=== PATIENT | female | born 1960 | race Caucasian/White ===

== ENCOUNTER 2017-08-31 03:40 | Inpatient (IN) | payer BC, OTHER ==
[~2017-08-31] VITALS: Ht 165.1 cm; Wt 154.8 kg
[2017-08-31] MEDS ORDERED: HYDROcodone-ACET 10/325MG TAB PO ONE (05:30)
[2017-08-31 06:51] LABS: Basophils # (auto) 0.1 uL; Basophils % (auto) 0.5 % (0.0-2.0); Eosinophils # (auto) 0.3 uL; Eosinophils % (auto) 2.3 % (0.0-7.0); Hematocrit 43.4 % (36.0-46.0); Hemoglobin 14.7 g/dL (12.2-16.2); Lymphocytes # (auto) 1.1 uL; Lymphocytes % (auto) 9.3 % (10.0-50.0); Mean Corpuscular Hemoglobin 30.2 pg (28.0-32.0); Mean Corpuscular Hgb Conc. 33.9 g/dL (32.0-36.0); Mean Corpuscular Volume 89.1 fL (80.0-100.0); Monocytes # (auto) 0.9 uL; Neutrophils # (auto) 9.1 uL; Neutrophils % (auto) 79.9 % (37.0-80.0); Nucleated Red Blood Cells % 0.1 %; Platelet Count (auto) 105 10^3/uL (140-450); Red Blood Cells 4.87 10^6/uL (4.0-5.20); Red Cell Distribution Width 13.2 % (11.8-14.3); White Blood Cell 11.4 10^3/uL (4.4-10.8)
[2017-08-31 07:21] LABS: Alanine Aminotransferase 48 U/L (13-56); Albumin 3.7 g/dL (3.4-5.0); Alkaline Phosphatase 94 U/L (45-117); Anion Gap 10 (5-15); Aspartate Aminotransferase 21 U/L (15-37); BUN/Creatinine Ratio 20.3; Bilirubin, Total 0.3 mg/dL (0.2-1.0); Blood Urea Nitrogen 15 mg/dL (7-18); Calcium 9.1 mg/dL (8.5-10.1); Carbon Dioxide 22 mmol/L (21-32); Chloride 108 mmol/L (98-107); GFR African American 104 mL/min; GFR Non-African American 86 mL/min; Glucose 129 mg/dL (74-106); Magnesium 2.5 mg/dL (1.6-2.6); Potassium 3.9 mmol/L (3.5-5.1); Sodium 140 mmol/L (136-145); Total Protein 6.9 g/dL (6.4-8.2)
[2017-08-31 07:41] LABS: INR 0.91 (0.9-1.15); Partial Thromboplastin Time 24.7 sec (22.64-33.71); Prothrombin Time 9.9 sec (9.37-12.3)
[2017-08-31] MEDS: SODIUM CHLORIDE 0.9% 1,000 ML IV SCH (08:03)
[2017-08-31] MEDS ORDERED: NITROGLYCERIN 0.4 MG SL TAB SL PRN (08:15)
[2017-08-31] MEDS ORDERED: LACTULOSE 20Gm/30ML SOLN PO PRN (08:15)
[2017-08-31] MEDS ORDERED: MORPHINE SULFATE 4 MG/ML SYR/VIAL IV PRN (08:15)
[2017-08-31] MEDS ORDERED: ACETAMINOPHEN 500 MG TAB PO PRN (08:15)
[2017-08-31] MEDS: PROMETHAZINE HCL 25 MG/ML 1ML IV PRN ×2 (08:35→21:51)
[2017-08-31] MEDS: MORPHINE SULFATE 4 MG/ML SYR/VIAL IV PRN ×4 (08:35→21:42)
[2017-08-31 08:36] LABS: Alcohol, Urine < 3.0 mg/dL (0-5); Amphetamine Screen, Urine NEGATIVE (NEGATIVE); Barbiturate Scree,Urine NEGATIVE (NEGATIVE); Benzodiazephine Screen, Urine POSITIVE (NEGATIVE); Cannabinoid Screen, Urine NEGATIVE (NEGATIVE); Cocaine Screen, Urine NEGATIVE (NEGATIVE); Opiate Scree,Urine NEGATIVE (NEGATIVE); Phencyclidine Screen, Urine NEGATIVE (NEGATIVE)
[2017-08-31 08:40] LABS: Urine Bacteria NONE SEEN /hpf (None Seen); Urine Blood Negative /uL (Negative); Urine Mucus FEW (None Seen); Urine Specific Gravity 1.016 (1.001-1.035); Urine WBC <1 /hpf (0 - 5)
[2017-08-31 09:11] LABS: Cholesterol 120 mg/dL (< 200); Creatine Kinase IFCC 133 U/L (26-192); HDL Cholesterol 50 mg/dL (40-59); LDL Cholesterol 62 mg/dL (< 100); Triglycerides 157 mg/dL (< 150)
[2017-08-31] MEDS ORDERED: IOHEXOL 350 MG/ML 100ML IJ ONE ×2 (09:26→09:42)
[2017-08-31 10:30] LABS: Free T3 2.43 pg/mL (2.3-4.2); Free T4 (Free Thyroxine) 1.23 ng/dL (0.89-1.76)
[2017-08-31 10:33] LABS: Folate (Folic Acid) 21.68 ng/mL (5.38-24)
[2017-08-31] MEDS: ASPirin 81 mg TAB PO SCH (11:18)
[2017-08-31] MEDS: HYDROcodone-ACET 5/325MG TAB PO PRN (11:18)
[2017-08-31] MEDS ORDERED: TURM500C PO (11:29)
[2017-08-31] MEDS ORDERED: MULTTAB PO (11:29)
[2017-08-31] MEDS ORDERED: IBUP800T24 PO (11:29)
[2017-08-31] MEDS ORDERED: BIOT50006 PO (11:29)
[2017-08-31] MEDS ORDERED: ATOR40TA52 PO (11:36)
[2017-08-31] MEDS ORDERED: LEVO200T46 PO (11:36)
[2017-08-31] MEDS ORDERED: CARV6.2551 PO (11:36)
[2017-08-31] MEDS ORDERED: ALPR1TAB7 PO (11:36)
[2017-08-31] MEDS ORDERED: FUR20T PO (11:36)
[2017-08-31] MEDS ORDERED: ESTR0.5T5 PO (11:36)
[2017-08-31 13:00] VITALS: BP 133/74
[2017-08-31 17:00] VITALS: BP 136/78
[2017-08-31] MEDS: ATORVASTATIN 20 MG TAB PO SCH (21:43)
[2017-08-31] MEDS: TEMAZEPAM 15 MG CAP PO PRN (21:52)
[2017-08-31] MEDS ORDERED: LEFL20TA PO (21:57)
[2017-08-31 22:00] VITALS: BP 138/71
[2017-09-01] MEDS: HYDROcodone-ACET 5/325MG TAB PO PRN ×3 (01:07→16:27)
[2017-09-01 05:36] VITALS: BP 126/76
[2017-09-01] MEDS: MORPHINE SULFATE 4 MG/ML SYR/VIAL IV PRN ×5 (05:36→23:11)
[2017-09-01] MEDS: SODIUM CHLORIDE 0.9% 1,000 ML IV SCH ×2 (05:50→09:03)
[2017-09-01 06:20] LABS: Basophils # (auto) 0.1 uL; Basophils % (auto) 0.8 % (0.0-2.0); Eosinophils # (auto) 0.2 uL; Eosinophils % (auto) 2.7 % (0.0-7.0); Hematocrit 37.9 % (36.0-46.0); Lymphocytes # (auto) 1.2 uL; Lymphocytes % (auto) 15.7 % (10.0-50.0); Mean Corpuscular Hemoglobin 30.9 pg (28.0-32.0); Mean Corpuscular Hgb Conc. 34.3 g/dL (32.0-36.0); Monocytes # (auto) 0.8 uL; Monocytes % (auto) 10.5 % (0.0-12.0); Neutrophils # (auto) 5.2 uL; Neutrophils % (auto) 70.3 % (37.0-80.0); Nucleated Red Blood Cells % 0.1 %; Platelet Count (auto) 93 10^3/uL (140-450); Red Blood Cells 4.21 10^6/uL (4.0-5.20); White Blood Cell 7.4 10^3/uL (4.4-10.8)
[2017-09-01 09:00] VITALS: BP 125/64
[2017-09-01] MEDS: ASPirin 81 mg TAB PO SCH (10:14)
[2017-09-01] MEDS: PROMETHAZINE HCL 25 MG/ML 1ML IV PRN ×3 (10:15→18:32)
[2017-09-01 13:00] VITALS: BP 116/57
[2017-09-01 17:00] VITALS: BP 133/68
[2017-09-01] MEDS: ATORVASTATIN 20 MG TAB PO SCH (21:10)
[2017-09-01] MEDS: LORazepam 0.5 MG TAB PO PRN (21:10)
[2017-09-01 22:00] VITALS: BP 134/68
[2017-09-02] MEDS: TEMAZEPAM 15 MG CAP PO PRN ×2 (01:13→22:32)
[2017-09-02] MEDS: HYDROcodone-ACET 5/325MG TAB PO PRN ×4 (03:31→22:32)
[2017-09-02 05:00] VITALS: BP 126/71
[2017-09-02] MEDS: SODIUM CHLORIDE 0.9% 1,000 ML IV SCH ×2 (06:31→10:30)
[2017-09-02] MEDS: MORPHINE SULFATE 4 MG/ML SYR/VIAL IV PRN ×4 (07:59→17:00)
[2017-09-02 08:05] VITALS: BP 143/79
[2017-09-02] MEDS: ASPirin 81 mg TAB PO SCH (11:42)
[2017-09-02 12:58] VITALS: BP 134/73
[2017-09-02] MEDS ORDERED: LEVOTHYROXINE SODIUM 100 MCG TAB PO ONE (14:45)
[2017-09-02] MEDS ORDERED: ESTRADIOL 1 MG TAB PO ONE (14:45)
[2017-09-02 17:09] VITALS: BP 148/71
[2017-09-02 22:00] VITALS: BP 141/80
[2017-09-02] MEDS: LEFLUNOMIDE 20 MG PO SCH (22:00)
[2017-09-02] MEDS: ATORVASTATIN 20 MG TAB PO SCH (22:32)
[2017-09-03] MEDS: MORPHINE SULFATE 4 MG/ML SYR/VIAL IV PRN ×4 (01:32→16:05)
[2017-09-03] MEDS: SODIUM CHLORIDE 0.9% 1,000 ML IV SCH ×3 (01:34→22:14)
[2017-09-03 02:56] VITALS: BP 141/80
[2017-09-03] MEDS: LORazepam 0.5 MG TAB PO PRN ×2 (04:17→19:53)
[2017-09-03 05:00] VITALS: BP 124/79
[2017-09-03] MEDS: LEVOTHYROXINE SODIUM 100 MCG TAB PO SCH (06:41)
[2017-09-03] MEDS: HYDROcodone-ACET 5/325MG TAB PO PRN (06:41)
[2017-09-03 09:00] VITALS: BP 136/70
[2017-09-03] MEDS: HYDROcodone-ACET 10/325MG TAB PO PRN ×4 (09:15→22:11)
[2017-09-03] MEDS: amLODIPine BESYLATE 5 MG TAB PO SCH (10:01)
[2017-09-03] MEDS: ASPirin 81 mg TAB PO SCH (10:01)
[2017-09-03] MEDS: ESTRADIOL 1 MG TAB PO SCH (10:02)
[2017-09-03 12:37] VITALS: BP 156/95
[2017-09-03] MEDS ORDERED: CARISOPRODOL 350 MG TAB PO ONE (13:30)
[2017-09-03 16:38] VITALS: BP 146/77
[2017-09-03 22:00] VITALS: BP 144/81
[2017-09-03] MEDS: LEFLUNOMIDE 20 MG PO SCH (22:09)
[2017-09-03] MEDS: ATORVASTATIN 20 MG TAB PO SCH (22:10)
[2017-09-03] MEDS: TEMAZEPAM 15 MG CAP PO PRN (22:10)
[2017-09-04] MEDS: MORPHINE SULFATE 4 MG/ML SYR/VIAL IV PRN ×3 (01:22→14:28)
[2017-09-04] MEDS: LORazepam 0.5 MG TAB PO PRN ×2 (02:44→18:31)
[2017-09-04 04:49] VITALS: BP 148/89
[2017-09-04] MEDS: LEVOTHYROXINE SODIUM 100 MCG TAB PO SCH (06:29)
[2017-09-04] MEDS: HYDROcodone-ACET 10/325MG TAB PO PRN ×3 (06:30→22:14)
[2017-09-04 09:00] VITALS: BP 138/83
[2017-09-04] MEDS: ASPirin 81 mg TAB PO SCH (10:20)
[2017-09-04] MEDS: ESTRADIOL 1 MG TAB PO SCH (10:20)
[2017-09-04] MEDS: amLODIPine BESYLATE 5 MG TAB PO SCH (10:22)
[2017-09-04] MEDS: SODIUM CHLORIDE 0.9% 1,000 ML IV SCH (12:37)
[2017-09-04 13:00] VITALS: BP 142/77
[2017-09-04] MEDS: PROMETHAZINE HCL 25 MG/ML 1ML IV PRN (14:27)
[2017-09-04 17:00] VITALS: BP 149/80
[2017-09-04 22:00] VITALS: BP 149/91
[2017-09-04] MEDS: ATORVASTATIN 20 MG TAB PO SCH (22:14)
[2017-09-04] MEDS: LEFLUNOMIDE 20 MG PO SCH (22:16)
[2017-09-04] MEDS: TEMAZEPAM 15 MG CAP PO PRN (22:16)
[2017-09-05] MEDS: HYDROcodone-ACET 10/325MG TAB PO PRN ×6 (03:36→22:40)
[2017-09-05 05:30] VITALS: BP 115/61
[2017-09-05] MEDS: LORazepam 0.5 MG TAB PO PRN ×2 (06:27→21:02)
[2017-09-05] MEDS: LEVOTHYROXINE SODIUM 100 MCG TAB PO SCH (06:28)
[2017-09-05 08:00] VITALS: BP 138/83
[2017-09-05 08:55] VITALS: BP 142/82
[2017-09-05] MEDS: ASPirin 81 mg TAB PO SCH (09:45)
[2017-09-05] MEDS: ESTRADIOL 1 MG TAB PO SCH (09:45)
[2017-09-05] MEDS: amLODIPine BESYLATE 5 MG TAB PO SCH (09:45)
[2017-09-05] MEDS: SODIUM CHLORIDE 0.9% 1,000 ML IV SCH ×3 (09:46→22:41)
[2017-09-05 12:16] LABS: Basophils # (auto) 0 uL; Basophils % (auto) 0.6 % (0.0-2.0); Eosinophils # (auto) 0.3 uL; Hematocrit 37.4 % (36.0-46.0); Hemoglobin 12.8 g/dL (12.2-16.2); Lymphocytes % (auto) 14.5 % (10.0-50.0); Mean Corpuscular Hemoglobin 30.6 pg (28.0-32.0); Mean Corpuscular Hgb Conc. 34.2 g/dL (32.0-36.0); Mean Corpuscular Volume 89.5 fL (80.0-100.0); Monocytes # (auto) 0.8 uL; Monocytes % (auto) 10.6 % (0.0-12.0); Neutrophils % (auto) 70.3 % (37.0-80.0); Platelet Count (auto) 119 10^3/uL (140-450); Red Blood Cells 4.18 10^6/uL (4.0-5.20); Red Cell Distribution Width 13.4 % (11.8-14.3); White Blood Cell 7.2 10^3/uL (4.4-10.8)
[2017-09-05 12:47] VITALS: BP 144/83
[2017-09-05] MEDS ORDERED: ETOMIDATE (2MG/ML) 20ML VIAL IV ONE (15:10)
[2017-09-05 17:21] VITALS: BP 140/66
[2017-09-05] MEDS: LEFLUNOMIDE 20 MG PO SCH (21:02)
[2017-09-05] MEDS: ATORVASTATIN 20 MG TAB PO SCH (21:03)
[2017-09-05 22:00] VITALS: BP 131/69
[2017-09-05] MEDS: TEMAZEPAM 15 MG CAP PO PRN (22:40)
[2017-09-06] MEDS: HYDROcodone-ACET 10/325MG TAB PO PRN ×5 (01:48→21:17)
[2017-09-06 04:34] VITALS: BP 131/69
[2017-09-06 05:00] VITALS: BP 155/80
[2017-09-06] MEDS: LEVOTHYROXINE SODIUM 100 MCG TAB PO SCH (06:52)
[2017-09-06 08:56] VITALS: BP 165/67
[2017-09-06] MEDS: ASPirin 81 mg TAB PO SCH (09:58)
[2017-09-06] MEDS: ESTRADIOL 1 MG TAB PO SCH (09:58)
[2017-09-06] MEDS: amLODIPine BESYLATE 5 MG TAB PO SCH (09:59)
[2017-09-06] MEDS: SODIUM CHLORIDE 0.9% 1,000 ML IV SCH (11:30)
[2017-09-06] MEDS: LORazepam 0.5 MG TAB PO PRN (11:39)
[2017-09-06 12:56] VITALS: BP 161/92
[2017-09-06 17:04] VITALS: BP 145/87
[2017-09-06 19:19] LABS: BUN/Creatinine Ratio 14.9; Calcium 9.1 mg/dL (8.5-10.1); Potassium 3.8 mmol/L (3.5-5.1)
[2017-09-06] MEDS: ATORVASTATIN 20 MG TAB PO SCH (21:17)
[2017-09-06] MEDS: LEFLUNOMIDE 20 MG PO SCH (21:17)
[2017-09-06] MEDS: TEMAZEPAM 15 MG CAP PO PRN (21:50)
[2017-09-06 22:00] VITALS: BP 166/65
[2017-09-07] MEDS: HYDROcodone-ACET 10/325MG TAB PO PRN ×4 (00:51→21:05)
[2017-09-07 05:44] VITALS: BP 186/72
[2017-09-07 05:51] LABS: INR 0.94 (0.9-1.15); Prothrombin Time 10.2 sec (9.37-12.3)
[2017-09-07 08:00] VITALS: BP 159/86
[2017-09-07] MEDS: LEVOTHYROXINE SODIUM 100 MCG TAB PO SCH (08:00)
[2017-09-07] MEDS: amLODIPine BESYLATE 5 MG TAB PO SCH (08:00)
[2017-09-07 08:30] VITALS: BP 159/86
[2017-09-07 09:00] VITALS: BP 172/72
[2017-09-07] MEDS ORDERED: fentaNYL CITRATE 100 MCG/2 ML VL ONE (09:46)
[2017-09-07] MEDS ORDERED: ROCURONIUM 10MG/ML 10ML VIAL IV ONE (09:46)
[2017-09-07] MEDS ORDERED: MIDAZOLAM HCL 1MG/1ML-2 ML VIAL ONE (09:47)
[2017-09-07] MEDS ORDERED: ONDANSETRON HCL 4 MG/2 ML VIAL ONE (09:47)
[2017-09-07] MEDS ORDERED: PROPOFOL 10 MG/ML 20 ML IV ONE (09:47)
[2017-09-07] MEDS ORDERED: ceFAZolin 1GM 2 GM in D5W 5% 100 ML IV ONE (10:00)
[2017-09-07] MEDS: ASPirin 81 mg TAB PO SCH (10:00)
[2017-09-07] MEDS: ESTRADIOL 1 MG TAB PO SCH (10:00)
[2017-09-07] MEDS ORDERED: SUCCINYLCHOLINE CHLORIDE 20 MG/ML 10ML VIAL IV ONE (11:28)
[2017-09-07] MEDS ORDERED: BUPIVACAINE W/ EPINEPH 0.25% INJ 50ML MDV ONE (12:07)
[2017-09-07] MEDS ORDERED: KETOROLAC TROMETH 60MG/2ML VIAL IM ONE (12:17)
[2017-09-07] MEDS ORDERED: MORPHINE SULFATE 4 MG/ML SYR/VIAL IV PRN (14:30)
[2017-09-07] MEDS ORDERED: LABETALOL HCL 5 MG/ML 4ML SYRINGE IV PRN (14:30)
[2017-09-07] MEDS ORDERED: METOCLOPRAMIDE HCL 5MG/ml INJ 2ml VIAL IV ONE (14:30)
[2017-09-07] MEDS ORDERED: ACETAMINOPHEN IV 100 ML IV ONE (14:58)
[2017-09-07] MEDS ORDERED: ACETAMINOPHEN IV 1000 MG/100ML (10MG/ML) IV ONE (15:30)
[2017-09-07 17:00] VITALS: BP 159/72
[2017-09-07] MEDS: SODIUM CHLORIDE 0.9% 1,000 ML IV SCH (17:42)
[2017-09-07] MEDS: ceFAZolin 1GM/50ML 100 ML IV SCH ×2 (17:42→23:11)
[2017-09-07] MEDS: LORazepam 0.5 MG TAB PO PRN (17:56)
[2017-09-07] MEDS: LEFLUNOMIDE 20 MG PO SCH (21:06)
[2017-09-07] MEDS: ATORVASTATIN 20 MG TAB PO SCH (21:06)
[2017-09-07 23:01] VITALS: BP 153/77
[2017-09-07] MEDS: TEMAZEPAM 15 MG CAP PO PRN (23:10)
[2017-09-08] MEDS: HYDROcodone-ACET 10/325MG TAB PO PRN ×5 (00:43→19:02)
[2017-09-08] MEDS: LORazepam 0.5 MG TAB PO PRN (01:43)
[2017-09-08] MEDS: SODIUM CHLORIDE 0.9% 1,000 ML IV SCH ×2 (03:33→13:52)
[2017-09-08 05:37] VITALS: BP 142/79
[2017-09-08] MEDS: ceFAZolin 1GM/50ML 100 ML IV SCH ×3 (05:55→17:52)
[2017-09-08] MEDS: LEVOTHYROXINE SODIUM 100 MCG TAB PO SCH (06:36)
[2017-09-08] MEDS: LABETALOL HCL 5 MG/ML ML 20ML VIAL IV PRN ×2 (07:48→18:53)
[2017-09-08 08:36] LABS: Hematocrit 33.3 % (36.0-46.0); Hemoglobin 11.2 g/dL (12.2-16.2)
[2017-09-08 09:00] VITALS: BP 184/90
[2017-09-08] MEDS: KETOROLAC TROMETH 30 MG/ML 1ML VIAL IV PRN ×3 (09:28→21:50)
[2017-09-08] MEDS: ESTRADIOL 1 MG TAB PO SCH (09:46)
[2017-09-08] MEDS: ASPirin 81 mg TAB PO SCH (09:46)
[2017-09-08] MEDS: amLODIPine BESYLATE 5 MG TAB PO SCH (09:49)
[2017-09-08] MEDS: PROMETHAZINE HCL 25 MG/ML 1ML IV PRN (09:49)
[2017-09-08 13:00] VITALS: BP 143/78
[2017-09-08 17:00] VITALS: BP 169/62
[2017-09-08] MEDS ORDERED: MORPHINE SULFATE 8mg/ml INJ SDV IV PRN ×2 (18:00)
[2017-09-08 20:00] VITALS: BP 150/98
[2017-09-08] MEDS: ATORVASTATIN 20 MG TAB PO SCH (21:39)
[2017-09-08] MEDS: TEMAZEPAM 15 MG CAP PO PRN (21:39)
[2017-09-08] MEDS: LEFLUNOMIDE 20 MG PO SCH (21:40)
[2017-09-09] MEDS: ceFAZolin 1GM/50ML 100 ML IV SCH ×3 (00:03→12:00)
[2017-09-09] MEDS: LORazepam 0.5 MG TAB PO PRN (01:15)
[2017-09-09] MEDS: LABETALOL HCL 5 MG/ML ML 20ML VIAL IV PRN (01:15)
[2017-09-09] MEDS: HYDROcodone-ACET 10/325MG TAB PO PRN ×3 (02:35→12:51)
[2017-09-09] MEDS: PROMETHAZINE HCL 25 MG/ML 1ML IV PRN (02:35)
[2017-09-09 04:50] VITALS: BP 156/81
[2017-09-09] MEDS: SODIUM CHLORIDE 0.9% 1,000 ML IV SCH (04:50)
[2017-09-09] MEDS: KETOROLAC TROMETH 30 MG/ML 1ML VIAL IV PRN (05:58)
[2017-09-09] MEDS: LEVOTHYROXINE SODIUM 100 MCG TAB PO SCH (07:03)
[2017-09-09 08:00] VITALS: BP 149/91
[2017-09-09] MEDS: amLODIPine BESYLATE 5 MG TAB PO SCH (08:48)
[2017-09-09] MEDS: ESTRADIOL 1 MG TAB PO SCH (08:49)
[2017-09-09] MEDS: ASPirin 81 mg TAB PO SCH (08:49)
[2017-09-09 09:00] VITALS: BP 191/97
[2017-09-09 11:00] VITALS: BP 191/97
== END 2017-09-09 14:15 | disposition home or self-care (01) | DRG 493 ==
LOC: EDBD 03:40 → ER 03:40 → TELE 03:41 → TELE-WESTW 10:51
PROVIDERS: ADMIT Internal Medicine; ATTEND Internal Medicine
PROC: 0LQ10ZZ Repair Right Shoulder Tendon, Open Approach (ICD-10-PCS; 2017-09-07)
PROC: 0PH Upper Bones, Insertion (ICD-10-PCS; principal; 2017-09-07 11:28)
DX: S42.474A Nondisplaced transcondylar fracture of right humerus, initial encounter for closed fracture (principal); G45.9 Transient cerebral ischemic attack, unspecified; Z68.43 Body mass index [BMI] 50.0-59.9, adult; E66.01 Morbid (severe) obesity due to excess calories; I10 Essential (primary) hypertension; M19.90 Unspecified osteoarthritis, unspecified site; Z79.82 Long term (current) use of aspirin; Z80.3 Family history of malignant neoplasm of breast; Z90.710 Acquired absence of both cervix and uterus; Z79.899 Other long term (current) drug therapy; Z82.49 Family history of ischemic heart disease and other diseases of the circulatory system; Z88.1 Allergy status to other antibiotic agents
CPT/HCPCS: 36415; 70450; 71045; 71275; 72192; 73020; 73030; 73060; 76001; 80048; 80053; 80061; 80307; 81001; 82550; 82607; 82746; 82962; 83735; 83880; 84439; 84443; 84481; 84484; 85014; 85018; 85025; 85379; 85610; 85652; 85730; 86850; 86900; 86901; 93005; 93306; 93886; 94660; 94761; 96361; 96374; A4565; J0131; J0330; J0690; J1885; J2250; J2405; J2704; J7060

== ENCOUNTER 2018-05-01 14:06 | Emergency (ER) | payer BC, OTHER ==
[~2018-05-01] VITALS: Ht 162.6 cm; Wt 127.0 kg
[~2018-05-01 14:06] MED LIST: ALPR1TAB7 PO; ATOR40TA52 PO; BIOT50006 PO; CARV6.2551 PO; ESTR0.5T5 PO; FUR20T PO; IBUP800T24 PO; LEFL20TA PO; LEVO200T46 PO; MULTTAB PO; TURM500C PO
[2018-05-01] MEDS ORDERED: SODIUM CHLORIDE 0.9% 1,000 ML IV ONE (14:24)
[2018-05-01 15:30] LABS: Basophils # (auto) 0.1 uL; Basophils % (auto) 0.9 % (0.0-2.0); Eosinophils # (auto) 0.1 uL; Eosinophils % (auto) 1.4 % (0.0-7.0); Hematocrit 46.2 % (36.0-46.0); Hemoglobin 15.9 g/dL (12.2-16.2); Lymphocytes % (auto) 11.7 % (10.0-50.0); Mean Corpuscular Hemoglobin 31.3 pg (28.0-32.0); Mean Corpuscular Hgb Conc. 34.4 g/dL (32.0-36.0); Monocytes # (auto) 0.7 uL; Monocytes % (auto) 7.7 % (0.0-12.0); Neutrophils % (auto) 78.3 % (37.0-80.0); Platelet Count (auto) 137 10^3/uL (140-450); Red Blood Cells 5.07 10^6/uL (4.0-5.20); Red Cell Distribution Width 13.3 % (11.8-14.3); White Blood Cell 8.9 10^3/uL (4.4-10.8)
[2018-05-01] MEDS ORDERED: ONDANSETRON HCL 4 MG/2 ML VIAL ONE (15:39)
[2018-05-01] MEDS ORDERED: KETOROLAC TROMETH 30 MG/ML 1ML VIAL ONE (15:39)
[2018-05-01 15:45] LABS: Anion Gap 8 (5-15); Blood Urea Nitrogen 18 mg/dL (7-18); Calcium 9.2 mg/dL (8.5-10.1); Carbon Dioxide 25 mmol/L (21-32); Chloride 106 mmol/L (98-107); Glucose 107 mg/dL (74-106); Potassium 4.2 mmol/L (3.5-5.1); Sodium 139 mmol/L (136-145)
[2018-05-01] MEDS ORDERED: KETOROLAC TROMETH 30 MG/ML 1ML VIAL IV ONE (15:45)
[2018-05-01] MEDS ORDERED: ONDANSETRON HCL 4 MG/2 ML VIAL IV ONE (15:45)
[2018-05-01 15:50] LABS: Alanine Aminotransferase 129 U/L (13-56); Alkaline Phosphatase 139 U/L (45-117); Aspartate Aminotransferase 105 U/L (15-37); BUN/Creatinine Ratio 19.1; Bilirubin, Total 0.6 mg/dL (0.2-1.0); GFR African American 79 mL/min; GFR Non-African American 65 mL/min; Total Protein 7.7 g/dL (6.4-8.2)
[2018-05-01 17:31] LABS: Urine Bacteria FEW /hpf (None Seen); Urine Blood Negative /uL (Negative); Urine Mucus FEW (None Seen); Urine Specific Gravity 1.017 (1.001-1.035); Urine WBC 1 /hpf (0 - 5)
[2018-05-01] MEDS ORDERED: MECLIZINE HCL 25 MG TAB PO ONE (18:00)
[2018-05-01 18:18] VITALS: BP 138/76
== END 2018-05-01 19:17 | disposition home or self-care (01) ==
LOC: ER 14:26
DX: R10.9 Unspecified abdominal pain (principal); R42 Dizziness and giddiness; I10 Essential (primary) hypertension; Z90.89 Acquired absence of other organs; Z79.899 Other long term (current) drug therapy; Z88.2 Allergy status to sulfonamides; Z88.1 Allergy status to other antibiotic agents
CPT/HCPCS: 36415; 71045; 74176; 80053; 81001; 84484; 85025; 96361; 96374; 96375; 99284; J1885; J2405; J7030; J8597

== ENCOUNTER 2018-09-12 15:35 | Emergency (ER) | payer BC ==
[~2018-09-12] VITALS: Ht 165.1 cm; Wt 147.4 kg
[2018-09-12 16:22] VITALS: BP 141/75
[2018-09-12] MEDS ORDERED: KETOROLAC TROMETH 60MG/2ML VIAL IM ONE (16:30)
== END 2018-09-12 17:45 | disposition home or self-care (01) ==
LOC: ER 15:43
DX: M17.12 Unilateral primary osteoarthritis, left knee (principal); M17.11 Unilateral primary osteoarthritis, right knee; I10 Essential (primary) hypertension; M19.90 Unspecified osteoarthritis, unspecified site; Z90.89 Acquired absence of other organs; Z88.2 Allergy status to sulfonamides; Z88.1 Allergy status to other antibiotic agents; Z79.899 Other long term (current) drug therapy
CPT/HCPCS: 73562; 96372; 99283; J1885

== ENCOUNTER 2019-03-09 10:35 | Emergency (ER) | payer BC ==
[~2019-03-09] VITALS: Ht 165.1 cm; Wt 159.2 kg
[2019-03-09 12:06] LABS: Basophils # (auto) 0.1 uL; Basophils % (auto) 0.8 % (0.0-2.0); Eosinophils # (auto) 0.2 uL; Eosinophils % (auto) 3.8 % (0.0-7.0); Hematocrit 42.7 % (36.0-46.0); Hemoglobin 14.5 g/dL (12.2-16.2); Lymphocytes # (auto) 1.4 uL; Lymphocytes % (auto) 22.7 % (10.0-50.0); Mean Corpuscular Hemoglobin 30.7 pg (28.0-32.0); Mean Corpuscular Hgb Conc. 33.9 g/dL (32.0-36.0); Mean Corpuscular Volume 90.4 fL (80.0-100.0); Monocytes # (auto) 0.5 uL; Monocytes % (auto) 7.3 % (0.0-12.0); Neutrophils # (auto) 4.1 uL; Neutrophils % (auto) 65.4 % (37.0-80.0); Nucleated Red Blood Cells % 0.1 %; Platelet Count (auto) 114 10^3/uL (140-450); Red Blood Cells 4.72 10^6/uL (4.0-5.20); Red Cell Distribution Width 13.1 % (11.8-14.3); White Blood Cell 6.3 10^3/uL (4.4-10.8)
[2019-03-09 12:13] LABS: Chloride 106 mmol/L (98-107); Potassium 4.3 mmol/L (3.5-5.1); Sodium 139 mmol/L (136-145)
[2019-03-09 12:18] LABS: Alanine Aminotransferase 40 U/L (13-56); Albumin 3.5 g/dL (3.4-5.0); Anion Gap 6 (5-15); Aspartate Aminotransferase 28 U/L (15-37); BUN/Creatinine Ratio 17.2; Blood Urea Nitrogen 15 mg/dL (7-18); Calcium 8.9 mg/dL (8.5-10.1); Carbon Dioxide 27 mmol/L (21-32); GFR African American 86 mL/min; GFR Non-African American 71 mL/min; Glucose 118 mg/dL (74-106)
[2019-03-09 12:22] LABS: Alkaline Phosphatase 123 U/L (45-117); Bilirubin, Total 0.6 mg/dL (0.2-1.0); Total Protein 7.2 g/dL (6.4-8.2)
[2019-03-09] MEDS ORDERED: KETOROLAC TROMETH 30 MG/ML 1ML VIAL IV ONE (13:00)
[2019-03-09] MEDS ORDERED: ONDANSETRON HCL 4 MG/2 ML VIAL IV ONE (13:00)
[2019-03-09 13:44] VITALS: BP 159/78
== END 2019-03-09 16:09 | disposition home or self-care (01) ==
LOC: ER 10:35
DX: N39.0 Urinary tract infection, site not specified (principal); R42 Dizziness and giddiness; M19.90 Unspecified osteoarthritis, unspecified site; I10 Essential (primary) hypertension; E07.9 Disorder of thyroid, unspecified; Z88.1 Allergy status to other antibiotic agents; Z88.2 Allergy status to sulfonamides; Z79.899 Other long term (current) drug therapy
CPT/HCPCS: 36415; 74176; 80053; 84484; 85025; 93005; 96374; 96375; 99284; J1885; J2405

== ENCOUNTER 2020-02-25 18:59 | Emergency (ER) | payer BC ==
[~2020-02-25] VITALS: Ht 165.1 cm; Wt 154.2 kg
[~2020-02-25 18:59] MED LIST changes: +MULT-733 PO; -MULTTAB PO
[2020-02-25 21:29] LABS: Urine Bacteria MOD /hpf (None Seen); Urine Blood Negative /uL (Negative); Urine Mucus FEW (None Seen); Urine Specific Gravity 1.011 (1.001-1.035); Urine WBC <1 /hpf (0 - 5)
[2020-02-25] MEDS ORDERED: SODIUM CHLORIDE 0.9% 1,000 ML IV ONE (22:00)
[2020-02-25 22:10] LABS: Basophils # (auto) 0.1 10 ^3/uL (0-0.2); Basophils % (auto) 0.7 % (0.0-2.0); Eosinophils # (auto) 0.2 10 ^3/uL (0-0.8); Eosinophils % (auto) 2.8 % (0.0-7.0); Hematocrit 42.9 % (36.0-46.0); Hemoglobin 14.6 g/dL (12.2-16.2); Lymphocytes # (auto) 2.4 10 ^3/uL (0.4-5.4); Lymphocytes % (auto) 26.4 % (10.0-50.0); Mean Corpuscular Hgb Conc. 34.1 g/dL (32.0-36.0); Mean Corpuscular Volume 90.9 fL (80.0-100.0); Monocytes # (auto) 0.7 10 ^3/uL (0-1.3); Monocytes % (auto) 7.5 % (0.0-12.0); Neutrophils # (auto) 5.6 10 ^3/uL (1.6-8.6); Neutrophils % (auto) 62.6 % (37.0-80.0); Nucleated Red Blood Cells % 0.1 %; Platelet Count (auto) 121 10^3/uL (140-450); Red Blood Cells 4.73 10^6/uL (4.0-5.20); Red Cell Distribution Width 12.9 % (11.8-14.3); White Blood Cell 8.9 10^3/uL (4.4-10.8)
[2020-02-25 22:25] LABS: INR 1.02 (0.9-1.15); Partial Thromboplastin Time 25.5 sec (23.0-31.2)
[2020-02-25 22:27] LABS: Calcium 9.7 mg/dL (8.5-10.1); Magnesium 2.1 mg/dL (1.6-2.6); Potassium 4.4 mmol/L (3.5-5.1)
[2020-02-25 22:29] LABS: BUN/Creatinine Ratio 17.3
[2020-02-25 22:31] LABS: Bilirubin, Total 0.6 mg/dL (0.2-1.0); Total Protein 7.6 g/dL (6.4-8.2)
[2020-02-26 00:06] VITALS: BP 134/69
== END 2020-02-26 00:36 | disposition home or self-care (01) ==
LOC: ER 18:59 → EDUNIT# 18:59 → EDBD 18:59 → ER 02-26 00:36
DX: K59.00 Constipation, unspecified (principal); I10 Essential (primary) hypertension; Z79.899 Other long term (current) drug therapy; Z88.2 Allergy status to sulfonamides; Z88.1 Allergy status to other antibiotic agents
CPT/HCPCS: 36415; 71045; 74176; 80053; 81001; 82150; 83690; 83735; 85025; 85610; 85730; 93005; 96360; 99285; J7030

== ENCOUNTER 2020-07-31 12:33 | Emergency (ER) | payer BC ==
[~2020-07-31] VITALS: Ht 165.1 cm; Wt 136.1 kg
[~2020-07-31 12:33] MED LIST changes: -IBUP800T24 PO; +IBUP800T26 PO; +LEVO200T PO; -LEVO200T46 PO
[2020-07-31] MEDS ORDERED: levoFLOXacin 500MG 100 ML IV ONE (13:00)
[2020-07-31] MEDS ORDERED: methylPREDNISolone SOD SUCC 125 MG/2 ML VL IV ONE (13:00)
[2020-07-31 13:48] LABS: Basophils # (auto) 0.1 10 ^3/uL (0-0.2); Basophils % (auto) 0.9 % (0.0-2.0); Eosinophils # (auto) 0.4 10 ^3/uL (0-0.8); Eosinophils % (auto) 5.2 % (0.0-7.0); Hematocrit 41.8 % (36.0-46.0); Hemoglobin 14.5 g/dL (12.2-16.2); Lymphocytes # (auto) 1.6 10 ^3/uL (0.4-5.4); Lymphocytes % (auto) 22.9 % (10.0-50.0); Mean Corpuscular Hemoglobin 31.6 pg (28.0-32.0); Mean Corpuscular Hgb Conc. 34.6 g/dL (32.0-36.0); Mean Corpuscular Volume 91.4 fL (80.0-100.0); Monocytes # (auto) 0.5 10 ^3/uL (0-1.3); Monocytes % (auto) 6.6 % (0.0-12.0); Neutrophils # (auto) 4.5 10 ^3/uL (1.6-8.6); Neutrophils % (auto) 64.4 % (37.0-80.0); Platelet Count (auto) 120 10^3/uL (140-450); Red Blood Cells 4.58 10^6/uL (4.0-5.20); Red Cell Distribution Width 12.9 % (11.8-14.3)
[2020-07-31 14:06] LABS: Albumin 3.8 g/dL (3.4-5.0); Anion Gap 7 (5-15); Blood Urea Nitrogen 13 mg/dL (7-18); Calcium 9.8 mg/dL (8.5-10.1); Carbon Dioxide 24 mmol/L (21-32); Chloride 107 mmol/L (98-107); Glucose 93 mg/dL (74-106); Potassium 4.5 mmol/L (3.5-5.1); Sodium 138 mmol/L (136-145)
[2020-07-31 14:12] LABS: Alanine Aminotransferase 34 U/L (13-56); Alkaline Phosphatase 101 U/L (45-117); Aspartate Aminotransferase 23 U/L (15-37); Bilirubin, Total 0.5 mg/dL (0.2-1.0); GFR African American 79 mL/min; GFR Non-African American 65 mL/min; Total Protein 7.3 g/dL (6.4-8.2)
[2020-07-31 15:55] VITALS: BP 90/68
== END 2020-07-31 16:24 | disposition home or self-care (01) ==
LOC: ER 12:33
DX: J20.9 Acute bronchitis, unspecified (principal); I10 Essential (primary) hypertension; E78.5 Hyperlipidemia, unspecified; Z90.710 Acquired absence of both cervix and uterus
CPT/HCPCS: 36415; 71046; 80053; 83880; 84484; 85025; 96365; 96375; 99285; J1956; J2930

== ENCOUNTER 2021-01-01 10:29 | Emergency (ER) | payer BC ==
[~2021-01-01] VITALS: Ht 165.1 cm; Wt 149.7 kg
[2021-01-01] MEDS ORDERED: KETOROLAC TROMETH 60MG/2ML VIAL IM ONE (11:45)
[2021-01-01 12:16] VITALS: BP 172/84
== END 2021-01-01 12:54 | disposition home or self-care (01) ==
LOC: ER 10:29
DX: M06.9 Rheumatoid arthritis, unspecified (principal); I10 Essential (primary) hypertension; E78.5 Hyperlipidemia, unspecified; Z90.710 Acquired absence of both cervix and uterus; Z88.1 Allergy status to other antibiotic agents; Z88.2 Allergy status to sulfonamides; Z79.899 Other long term (current) drug therapy
CPT/HCPCS: 96372; 99283; J1885

== ENCOUNTER 2021-05-30 11:31 | Emergency (ER) | payer BC ==
[~2021-05-30] VITALS: Ht 165.1 cm; Wt 149.7 kg
[2021-05-30 12:49] LABS: Basophils # (auto) 0 10 ^3/uL (0-0.2); Basophils % (auto) 0.6 % (0.0-2.0); Eosinophils # (auto) 0.3 10 ^3/uL (0-0.8); Eosinophils % (auto) 4.5 % (0.0-7.0); Hematocrit 39.8 % (36.0-46.0); Hemoglobin 13.4 g/dL (12.2-16.2); Lymphocytes # (auto) 1.8 10 ^3/uL (0.4-5.4); Lymphocytes % (auto) 26.5 % (10.0-50.0); Mean Corpuscular Hgb Conc. 33.8 g/dL (32.0-36.0); Mean Corpuscular Volume 91.7 fL (80.0-100.0); Monocytes # (auto) 0.5 10 ^3/uL (0-1.3); Monocytes % (auto) 8.1 % (0.0-12.0); Neutrophils # (auto) 4.1 10 ^3/uL (1.6-8.6); Neutrophils % (auto) 60.3 % (37.0-80.0); Nucleated Red Blood Cells % 0.2 %; Red Blood Cells 4.34 10^6/uL (4.0-5.20); Red Cell Distribution Width 12.9 % (11.8-14.3); White Blood Cell 6.8 10^3/uL (4.4-10.8)
[2021-05-30 12:58] LABS: Urine Bacteria MOD /hpf (None Seen); Urine Blood Negative /uL (Negative); Urine Mucus FEW (None Seen); Urine WBC <1 /hpf (0 - 5)
[2021-05-30 13:10] LABS: Albumin 3.9 g/dL (3.4-5.0); Potassium 4.5 mmol/L (3.5-5.1)
[2021-05-30 13:16] LABS: BUN/Creatinine Ratio 14.5; Bilirubin, Total 0.6 mg/dL (0.2-1.0); Calcium 10.1 mg/dL (8.5-10.1); Total Protein 7.3 g/dL (6.4-8.2)
[2021-05-30] MEDS ORDERED: CEPH-509 PO (14:32)
[2021-05-30 14:40] VITALS: BP 123/84
== END 2021-05-30 14:50 | disposition home or self-care (01) ==
LOC: ER 11:31 → EDBD 11:31 → ER 14:50
DX: N30.90 Cystitis, unspecified without hematuria (principal); M79.18 Myalgia, other site; E78.5 Hyperlipidemia, unspecified; I10 Essential (primary) hypertension; Z90.710 Acquired absence of both cervix and uterus; Z88.2 Allergy status to sulfonamides
CPT/HCPCS: 36415; 71045; 74176; 80053; 81001; 83690; 85025; 93005

== ENCOUNTER 2021-07-15 12:09 | Emergency (ER) | payer BC ==
[~2021-07-15] VITALS: Ht 165.1 cm; Wt 158.8 kg
[~2021-07-15 12:09] MED LIST changes: +CEPH-509 PO
[2021-07-15] MEDS ORDERED: ASPirin 81 mg TAB PO ONE (12:30)
[2021-07-15 14:10] LABS: Basophils # (auto) 0 10 ^3/uL (0-0.2); Basophils % (auto) 0.5 % (0.0-2.0); Eosinophils # (auto) 0.2 10 ^3/uL (0-0.8); Hematocrit 43.2 % (36.0-46.0); Hemoglobin 15.1 g/dL (12.2-16.2); Lymphocytes % (auto) 21.6 % (10.0-50.0); Mean Corpuscular Hemoglobin 31.8 pg (28.0-32.0); Mean Corpuscular Hgb Conc. 35.1 g/dL (32.0-36.0); Mean Corpuscular Volume 90.7 fL (80.0-100.0); Monocytes # (auto) 0.6 10 ^3/uL (0-1.3); Monocytes % (auto) 6.5 % (0.0-12.0); Neutrophils # (auto) 6.3 10 ^3/uL (1.6-8.6); Neutrophils % (auto) 69.4 % (37.0-80.0); Nucleated Red Blood Cells % 0.1 %; Red Blood Cells 4.76 10^6/uL (4.0-5.20); White Blood Cell 9.1 10^3/uL (4.4-10.8)
[2021-07-15 14:21] LABS: Albumin 4.2 g/dL (3.4-5.0); Calcium 9.8 mg/dL (8.5-10.1); Potassium 4.3 mmol/L (3.5-5.1)
[2021-07-15 14:36] LABS: Bilirubin, Total 0.7 mg/dL (0.2-1.0)
[2021-07-15 15:40] VITALS: BP 184/82
[2021-07-15] MEDS ORDERED: LEVO-28 PO (15:41)
== END 2021-07-15 15:56 | disposition home or self-care (01) ==
LOC: ER 12:09
DX: J20.9 Acute bronchitis, unspecified (principal); I10 Essential (primary) hypertension; I25.2 Old myocardial infarction; E78.5 Hyperlipidemia, unspecified; M19.90 Unspecified osteoarthritis, unspecified site; Z90.49 Acquired absence of other specified parts of digestive tract; Z90.710 Acquired absence of both cervix and uterus
CPT/HCPCS: 36415; 71045; 80053; 84443; 84484; 85025; 93005

== ENCOUNTER 2023-10-17 10:00 | Emergency (ER) | payer BC ==
[~2023-10-17] VITALS: Ht 165.1 cm; Wt 177.1 kg
[~2023-10-17 10:00] MED LIST changes: +IBUP-1455 PO; -IBUP800T26 PO; +LEVO500T91 PO
[2023-10-17] MEDS: cloNIDine HCL 0.1 MG TAB PO ONE (10:21)
[2023-10-17 12:36] LABS: Alanine Aminotransferase 32 U/L (7-40); Albumin 4.4 g/dL (3.2-4.8); Alkaline Phosphatase 99 U/L (46-116); Anion Gap 7 (5-15); Aspartate Aminotransferase 19 U/L (13-40); BUN/Creatinine Ratio 12.6 (10.0-20.0); Basophils # (auto) 0.1 10 ^3/uL (0-0.2); Basophils % (auto) 0.5 % (0.0-2.0); Blood Urea Nitrogen 11 mg/dL (9-23); Calcium 10.6 mg/dL (8.5-10.1); Carbon Dioxide 25 mmol/L (20-30); Chloride 104 mmol/L (98-107); Eosinophils # (auto) 0.2 10 ^3/uL (0-0.8); Eosinophils % (auto) 2.1 % (0.0-7.0); Glucose 105 mg/dL (74-106); Hematocrit 43.9 % (36.0-46.0); Lymphocytes # (auto) 1.3 10 ^3/uL (0.4-5.4); Lymphocytes % (auto) 12.3 % (10.0-50.0); Mean Corpuscular Hemoglobin 31.6 pg (28.0-32.0); Mean Corpuscular Hgb Conc. 34.3 g/dL (32.0-36.0); Mean Corpuscular Volume 92.1 fL (80.0-100.0); Monocytes # (auto) 0.8 10 ^3/uL (0-1.3); Monocytes % (auto) 7.6 % (0.0-12.0); Neutrophils # (auto) 8.3 10 ^3/uL (1.6-8.6); Neutrophils % (auto) 77.5 % (37.0-80.0); Nucleated Red Blood Cells % 0.1 %; Potassium 4.2 mmol/L (3.5-5.1); Red Blood Cells 4.76 10^6/uL (4.0-5.20); Sodium 136 mmol/L (136-145); White Blood Cell 10.7 10^3/uL (4.4-10.8)
[2023-10-17 12:37] LABS: Bilirubin, Total 0.7 mg/dL (0.2-1.0); Total Protein 7.7 g/dL (5.7-8.2)
[2023-10-17] MEDS: IOHEXOL 350 MG/ML 100ML IJ ONE (13:31)
[2023-10-17 16:25] LABS: Urine Bacteria None Seen /hpf (None Seen)
[2023-10-17 16:59] LABS: Urine Blood Negative /uL (Negative); Urine Clarity Clear (Clear); Urine Color Light-Yellow (Yellow); Urine Mucus FEW (None Seen); Urine Protein, UAD Negative (Negative); Urine Specific Gravity 1.042 (1.001-1.035); Urine Urobilinogen Normal (Negative); Urine WBC 1 /hpf (0 - 5)
[2023-10-17] MEDS ORDERED: LEVO500T91 PO (17:47)
[2023-10-17 18:18] VITALS: BP 180/78; PULSE 74; RESP 20; TEMP 98; O2SAT 96
== END 2023-10-17 18:19 | disposition home or self-care (01) ==
LOC: ER 10:00
DX: J20.9 Acute bronchitis, unspecified (principal); E78.5 Hyperlipidemia, unspecified; Z88.1 Allergy status to other antibiotic agents; Z88.2 Allergy status to sulfonamides; Z88.5 Allergy status to narcotic agent; Z79.899 Other long term (current) drug therapy; Z90.49 Acquired absence of other specified parts of digestive tract; Z90.710 Acquired absence of both cervix and uterus; Z98.890 Other specified postprocedural states
CPT/HCPCS: 36415; 71275; 80053; 81001; 84484; 85025; 93005; 99285; Q9967

== ENCOUNTER 2024-11-23 19:59 | Emergency (ER) | payer BC ==
[~2024-11-23] VITALS: Ht 152.4 cm; Wt 180.0 kg
[~2024-11-23 19:59] MED LIST changes: -FUR20T PO; +FURO20TA4 PO
[2024-11-23] MEDS ORDERED: SULFAMETH-TRIMETH 80/16MG-ML 15 ML in D5W 5% 500 ML IV ONE (20:45)
--- NOTE | 2024-11-23 20:47 | ED.PDOC ---
Musculoskeletal HPI Comments 64 year old female with a Hx of HTN, Asthma, RA, Hyperlipidemia, and an [place] presents to the ED for the c/c of Left lower Leg 3x Pitting Edema w/ associated erythema, Fever, and slight SOB. Pt states that she noticed the swelling yesterday, and notes that it has progressively gotten worse w/ no alleviating factors but a worsening factor or walking/movement. No other associated symptoms, modifiers, recent injuries or sick contacts present at this time. Chief Complaint: Lower Extremity Time Seen by MD: 20:43 Primary Care Provider: AGA Reviewed Notes: Nurses Notes, Medications, Allergies Allergies: Coded Allergies: Clarithromycin (Verified Allergy, Intermediate, difficulty breathing, 09/02/17) Sulfa Antibiotics (Verified Allergy, Unknown, 09/07/17) Morphine (Verified Adverse Reaction, Severe, HALLUCINATIONS, 05/30/21) Home Meds Active Scripts Mupirocin (Pseudomonas Fluores (Mupirocin) 2 % Oin, 1 APPLIC TOP TID PRN, #30 GRAMS Prov:SILVERIO LANDON MD 11/23/24 Fluconazole (Diflucan) 150 Mg Tab, 1 TAB PO ONCE, #1 TAB 1 Refill Prov:SILVERIO LANDON MD 11/23/24 Clindamycin HCl (Clindamycin Hydrochloride) 300 Mg Cap, 300 MG PO QID for 10 Days, #40 CAP Prov:SILVERIO LANDON MD 11/23/24 Levofloxacin Hemihydrate (LEVAQUIN 500 MG) 500 Mg Tab, 500 MG PO DAILY for 7 Days, #7 TAB Prov:MICHAEL MATTHEW MD 10/17/23 Levofloxacin Hemihydrate (LEVOFLOXACIN) 500 Mg Tab, 1 TAB PO DAILY for 7 Days, #7 TAB Prov:LUCI BECKHAM MD 07/15/21 Cephalexin (KEFLEX 500) 500 Mg Cap, 1 CAP PO TID for 5 Days, #15 CAP Prov:LUCI BECKHAM MD 05/30/21 Reported Medications Leflunomide (Arava) 20 Mg Tab, 1 TAB PO DAILY, #30 TAB 08/31/17 Alprazolam (Alprazolam) 1 Mg Tab, 1 TAB PO HS, #60 TAB 08/31/17 Atorvastatin Calcium (ATORVASTATIN CALCIUM) 40 Mg Tab, 1 TAB PO DAILY, #30 TAB 5 Refills 08/31/17 Estradiol (Estrace) 0.5 Mg Tab, 0.5 MG PO DAILY, TAB 08/31/17 Furosemide (Furosemide) 20 Mg Tab, 20 MG PO DAILY, TAB 08/31/17 Levothyroxine Sodium (Synthroid) 200 Mcg Tab, 1 TAB PO QAM, #30 TAB 5 Refills 08/31/17 Carvedilol (Carvedilol) 6.25 Mg Tab, 6.25 MG PO QAM for 30 Days, MG 08/31/17 Ibuprofen Micronized (Ibuprofen) 800 Mg Tab, 800 MG PO PRN, TAB 08/31/17 Biotin (SUPER BIOTIN) 5,000 Mcg Cap, 58097 MCG PO DAILY, CAP 08/31/17 Multiple Vitamins W/ Minerals (Centrum Silver) Silver Tab, 1 TAB PO DAILY, TAB 08/31/17 Curcuma Longa (Turmeric) Extra (TURMERIC CURCUMIN) 500 Mg Cap, 1000 MG PO DAILY, CAP 08/31/17 Information Source: Patient Mode of Arrival: Wheelchair Location: Left Extremity Location: Leg Timing: Hours Prehospital treatment: None Severity: Moderate Able to Move Extremity: Yes Bear Weight: No Pain: Moderate Hand Dominance: Right Mechanism: None Circumstances: Unknown Onset of Symptoms: Spontaneous Symptoms: Swelling, Pain, Erythema DVT Risk Factors: NONE Associated signs and symptoms: None Past Medical History PAST MEDICAL HISTORY: Arthritis, Asthma, High Lipids, HTN, [place] Surgical History: Appendectomy, , Hysterectomy 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 Family History Family History: Family hx of Cancer Social History Smoker: Non-Smoker Alcohol: Denies ETOH Use Drugs: Denies Drug Use Lives In: Home All Other Systems: Reviewed and Negative (Comprehensive systems review obtained and negative except for what is stated in the HPI.) Physical Exam General Appearance: No Apparent Distress, Obese HEENT: Other (pupils and face symmetric, moist mucous membranes) Neck: Full Range of Motion, Normal Inspection Respiratory: No Accessory Muscle Use, No Respiratory Distress, Wheezing Cardiovascular: No JVD, Regular Rate/Rhythm Breast Exam: Deferred Gastrointestinal: Non Tender, Soft Genitalia: Deferred Pelvic: Deferred Rectal: Deferred Extremities: Normal range of motion, Pedal edema, Swelling, Tender, Other (LLE erythema, edema, soft tissue tenderness. Tor's neg) Neurologic: Alert (oriented x 4), Normal Affect, Normal Mood, Other (no gross focal deficit) Cerebellar Function: NOT DONE Reflexes: NOT DONE Skin: Dry, Warm, Other (scattered papular wounds on extremities. LLE erythema/warmth/STS) Lymphatic: NOT DONE Was a procedure done? Was a procedure done?: No Differential Diagnosis EXT Differential Diagnosis: Cellulitis, CHF, Deep Vein Thrombosis X-Ray, Labs, Meds, VS Vital Signs Date Time Temp Pulse Resp B/P (MAP) Pulse Ox O2 Delivery O2 Flow Rate FiO2 11/24/24 00:11 208/84 11/23/24 23:27 98.3 84 20 193/84 (120) 99 98.3 11/23/24 22:23 20 95 Room Air* 0 21 11/23/24 20:00 97.5 82 20 194/97 94 97.5 Lab Test 11/23/24 21:49 11/23/24 20:53 Range/Units Troponin I High Sensitivity 8 8 </=34 ng/L White Blood Count 9.4 4.4-10.8 10^3/uL Red Blood Count 4.74 4.0-5.20 10^6/uL Hemoglobin 15.1 12.2-16.2 g/dL Hematocrit 43.6 36.0-46.0 % Mean Corpuscular Volume 92.0 80.0-100.0 fL Mean Corpuscular Hemoglobin 31.8 28.0-32.0 pg Mean Corpuscular Hemoglobin Concent 34.6 32.0-36.0 g/dL Red Cell Distribution Width 12.9 11.8-14.3 % Platelet Count 106 L 140-450 10^3/uL Mean Platelet Volume 7.7 6.9-10.8 fL Neutrophils (%) (Auto) 76.9 37.0-80.0 % Lymphocytes (%) (Auto) 10.8 10.0-50.0 % Monocytes (%) (Auto) 9.3 0.0-12.0 % Eosinophils (%) (Auto) 2.2 0.0-7.0 % Basophils (%) (Auto) 0.8 0.0-2.0 % Neutrophils # (Auto) 7.2 1.6-8.6 10 ^3/uL Lymphocytes # (Auto) 1.0 0.4-5.4 10 ^3/uL Monocytes # (Auto) 0.9 0-1.3 10 ^3/uL Eosinophils # (Auto) 0.2 0-0.8 10 ^3/uL Basophils # (Auto) 0.1 0-0.2 10 ^3/uL Nucleated Red Blood Cells 0.2 % Sodium Level 140 136-145 mmol/L Potassium Level 4.7 3.5-5.1 mmol/L Chloride Level 103 98-107 mmol/L Carbon Dioxide Level 29 20-31 mmol/L Anion Gap 8 5-15 Blood Urea Nitrogen 10 9-23 mg/dL Creatinine 1.03 H 0.550-1.02 mg/dL Glomerular Filtration Rate Calc 61 >90 mL/min BUN/Creatinine Ratio 9.7 L 10.0-20.0 Serum Glucose 115 H 74-106 mg/dL Calcium Level 9.9 8.7-10.4 mg/dL B-Type Natriuretic Peptide 48.21 0-100 pg/mL Current Medications Medications (Trade) Dose Ordered Sig/Pool Route Start Time Stop Time Status Last Admin Clindamycin Phosphate 50 ml @ 50 mls/hr ONCE ONCE IV 11/23/24 20:45 11/23/24 21:44 DC 11/24/24 00:11 Ipratropium [employer] (Atrovent Medneb) 0.5 mg ONCE ONCE NEB 11/23/24 20:45 11/23/24 20:47 DC 11/23/24 22:20 Ketorolac Tromethamine (Toradol Injection) 30 mg ONCE ONCE IV 11/23/24 20:45 11/23/24 20:47 DC 11/24/24 00:10 Hydralazine HCl (Apresoline Injection) 10 mg ONCE ONCE IV 11/24/24 00:00 11/24/24 00:01 DC 11/24/24 00:11 PATIENT: DYLON ANSARI ACCT: [id number] UNIT: [id number] : 1960 LOC: ER ROOM / BED: / AGE / SEX: 64 / F ADM STATUS: REG ER SERVICE 42 ORDERING PHYSICIAN: SILVERIO LANDON MD PROCEDURE(s): BLDVT - BiLat Lower DVT REASON: LLE redness/pain/edema ORDER NUMBER(s): [id number], ACCESSION NUMBER(s): [id number] EXAM: US BILAT LOWER DVT Clinical History: LLE redness/pain/edema Comparison: None Technique: Duplex Doppler evaluation of the deep venous systems of both lower extremities from the common femoral veins to the popliteal veins including color Doppler and spectral/pulsed waveform analysis was performed. Findings: Technically difficult exam. No visible intraluminal venous thrombus. No evidence of incompressibility or abnormal color or spectral Doppler flow visualized in the remaining deep bilateral lower extremity veins. Proximal greater saphenous veins are grossly unremarkable. The left common femoral, greater saphenous, and proximal superficial femoral veins are not visualized. Impression: 1. No sonographic evidence of deep venous thrombosis throughout the visualized bilateral lower extremities from the popliteal veins to the common femoral veins. X-Ray, Labs, Meds, VS Comment 64 year old female with a Hx of HTN, Asthma, RA, Hyperlipidemia, and an [place] presents to the ED for the c/c of Left lower Leg 3x Pitting Edema w/ associated erythema, Fever, and slight SOB Vitals remarkable for BP 208/84 Exam remarkable for left lower extremity erythema, edema, warmth and tenderness and mild expiratory wheezing Rhythm strip independently interpreted by me: Sinus rhythm, rate eighty-two, no ectopy. Left lower extremity Doppler ultrasound negative for DVT CBC, basic metabolic panel, BNP and troponins unremarkable for any abnormality of acute significance Patient treated with the following in the ED: Clindamycin 900 mg IV, Toradol 30 mg IV, albuterol 5 mg/Atrovent 0.5 mg nebulized, hydralazine 10 mg IV On re-evaluation, patient states pain has improved. Blood pressure has improved, other vitals were stable. Chest is clear. Hospitalization was considered, however patient had rapid improvement of symptoms with treatment in the ED, workup is essentially unremarkable, and adeola ent states she would prefer to be discharged rather than stay in the hospital. Patient appears stable for discharge with close outpatient follow-up with her primary physician. Rx clindamycin, Diflucan (requested by patient due to frequent yeast infections when taking antibiotics), mupirocin Time of 1ST Reevaluation: 21:13 Reevaluation 1ST: Unchanged Patient Education/Counseling: Diagnosis, Treatment, Need For Follow Up Family Education/Counseling: No Family Present Departure 1 Departure Time of Disposition: 23:41 Impression: Primary Impression: Left leg cellulitis Disposition: HOME / SELF CARE / HOMELESS Condition: Stable Additional Instructions: your blood tests were unremarkable. your ultrasound did not show a blood clot. I have prescribed antibiotics for an infection. follow up with your primary doctor in 1-2 days. return to ER for persistent or worsening symptoms. e-Prescriptions Mupirocin (Pseudomonas Fluores (Mupirocin) 2 % Oin 1 APPLIC TOP TID PRN, #30 GRAMS Prov: SILVERIO LANDON MD 11/23/24 Fluconazole (Diflucan) 150 Mg Tab 1 TAB PO ONCE, #1 TAB 1 Refill Prov: SILVERIO LANDON MD 11/23/24 Clindamycin HCl (Clindamycin Hydrochloride) 300 Mg Cap 300 MG PO QID for 10 Days, #40 CAP Prov: SILVERIO LANDON MD 11/23/24 Discharged With: Relative Critical Care Note Critical Care Time?: No Stability Stability form required: No Heart Score Heart Score: Heart Score Response (Comments) Value History N/A 0 EKG N/A 0 Age N/A 0 Risk Factors N/A 0 Troponin N/A 0 Total 0 I personally scribed for SILVERIO LANDON MD ([email or web address]) on 11/23/24 at 20:47. Electronically submitted by Atul Westbrook ([email or web address]). I personally scribed for SILVERIO LANDON MD ([email or web address]) on 11/23/24 at 22:49. Electronically submitted by Atul Westbrook ([email or web address]). SILVERIO LANDON MD Nov 23, 2024 20:47
[2024-11-23 21:03] LABS: Hematocrit 43.6 % (36.0-46.0); Hemoglobin 15.1 g/dL (12.2-16.2); Mean Corpuscular Hemoglobin 31.8 pg (28.0-32.0); Mean Corpuscular Volume 92.0 fL (80.0-100.0); Nucleated Red Blood Cells % 0.2 %
[2024-11-23 21:13] LABS: Chloride 103 mmol/L (98-107); Potassium 4.7 mmol/L (3.5-5.1); Sodium 140 mmol/L (136-145)
[2024-11-23 21:14] LABS: Anion Gap 8 (5-15); Calcium 9.9 mg/dL (8.7-10.4); Carbon Dioxide 29 mmol/L (20-31)
[2024-11-23 21:19] LABS: BUN/Creatinine Ratio 9.7 (10.0-20.0); Blood Urea Nitrogen 10 mg/dL (9-23)
[2024-11-23 21:20] LABS: Glucose 115 mg/dL (74-106)
--- NOTE | 2024-11-23 21:50 | DVH ---
EXAM: US BILAT LOWER DVT Clinical History: LLE redness/pain/edema Comparison: None Technique: Duplex Doppler evaluation of the deep venous systems of both lower extremities from the common femora l veins to the popliteal veins including color Doppler and spectral/pulsed waveform analysis was perf ormed. Findings: Technically difficult exam. No visible intraluminal venous thrombus. No evidence of incompressibility or abnormal color or spectr al Doppler flow visualized in the remaining deep bilateral lower extremity veins. Proximal greater sa phenous veins are grossly unremarkable. The left common femoral, greater saphenous, and proximal superficial femoral veins are not visualized . Impression: 1. No sonographic evidence of deep venous thrombosis throughout the visualized bilateral lower extrem ities from the popliteal veins to the common femoral veins.
[2024-11-23] MEDS: IPRATROPIUM BROM 0.5 MG/2.5ML INH SOL NEB ONE (22:20)
[2024-11-23] MEDS: ALBUTEROL SULF 2.5 MG/0.5ML(0.5%) NEB SOLN NEB ONE (22:21)
[2024-11-23 23:27] VITALS: PULSE 84; RESP 20; TEMP 98.3; O2SAT 99
[2024-11-23] MEDS ORDERED: CLIN-203 PO (23:36)
[2024-11-23] MEDS ORDERED: FLUC150T38 PO (23:43)
[2024-11-23] MEDS ORDERED: MUPI2OIN2 TOP (23:43)
[2024-11-24] MEDS: KETOROLAC TROMETH 30 MG/ML 1ML VIAL IV ONE (00:10)
[2024-11-24] MEDS: hydrALAZINE HCL 20 MG/ML VL IV ONE (00:11)
[2024-11-24] MEDS: CLINDAMYCIN 900MG IV 50 ML IV ONE (00:11)
[2024-11-24 01:21] VITALS: BP 195/85
[2024-11-24] MEDS ORDERED: ENALAPRILAT 1.25 MG/ML-1ML VIAL IV ONE (01:30)
[2024-11-24] MEDS: CARVEDILOL 3.125 MG TAB PO ONE (02:21)
[2024-11-24] MEDS: CARVEDILOL 3.125 MG TAB ONE (02:21)
== END 2024-11-24 02:23 | disposition home or self-care (01) ==
LOC: ER 19:59
DX: L03.116 Cellulitis of left lower limb (principal); I10 Essential (primary) hypertension; E78.5 Hyperlipidemia, unspecified; J45.909 Unspecified asthma, uncomplicated; Z90.710 Acquired absence of both cervix and uterus; Z88.5 Allergy status to narcotic agent; Z90.49 Acquired absence of other specified parts of digestive tract; Z79.899 Other long term (current) drug therapy; Z88.2 Allergy status to sulfonamides
CPT/HCPCS: 36415; 80048; 83880; 84484; 85025; 93970; 94640; 96365; 96375; 99285; J0360; J1885; J3490

== ENCOUNTER 2024-11-27 03:30 | Emergency (ER) | payer BC ==
[~2024-11-27] VITALS: Ht 165.1 cm; Wt 172.4 kg
[~2024-11-27 03:30] MED LIST changes: +CLIN-203 PO; +FLUC150T38 PO; +MUPI2OIN2 TOP
[2024-11-27] MEDS ORDERED: ALBUTEROL SULF 2.5 MG/0.5ML(0.5%) NEB SOLN NEB ONE (04:00)
--- NOTE | 2024-11-27 04:06 | ED.PDOC ---
HPI Comments 64-year-old female with a history of COPD, hyperlipidemia, hypertension, asthma, chronic bronchitis, and rheumatoid arthritis, was brought in by emergency services with a chief complaint of a hypotension, with the associated left leg infection. Per EMS patient woke up with tinnitus and a headache. Patient notes on taken her blood pressure and it was in the 200s systolic, notes on taking her blood pressure medication before calling emergency services. Upon arrival patie nt's blood pressure was noted to be 227/106, patient's blood pressure is known to have improved to 162/89 and currently SAT 92% on 4 L O2 at this time. Patient denies any chest pain, abdominal pain, nausea, vomiting, diarrhea, dysuria, hematuria, or any other associated symptoms, modifiers at this time. PHYSICAL EXAM: General: Awake, alert and oriented. No acute distress. Obese Skin: Skin in warm, dry and intact. Appropriate color for ethnicity. HEENT: The head is normocephalic and atraumatic. Conjunctivae are clear without exudates or hemorrhage. Sclera is non-icteric. EOM are intact. No signs of nysta gmus. Eyelids are normal in appearance without swelling or lesions. Oral mucosa is pink and moist Neck: The neck is supple with normal range of motion. No JVD. Cardiac: Heart rate and rhythm are normal. No murmurs, gallops, or rubs are auscultated. Respiratory: No signs of respiratory distress. Lung sounds are clear in all lobes bilaterally without rales, rhonchi, or wheezes. Abdominal: Abdomen is soft, non-tender without distention, guarding or rigidity. Bowel sounds are present and normoactive in all four quadrants. Extremities: Notable Infection to left leg, with the associated swelling, erythema Neurological: The patient is awake, alert and oriented to person, place, and time with normal speech. Speech is clear. There is no facial asymmetry. Psychiatric: Appropriate mood and affect. Good judgement and insight. Chief Complaint: High Blood Pressure Time Seen by MD: 04:00 Primary Care Provider: AGA Reviewed Notes: Nurses Notes, Orientation & Mobility Specialist Notes, Medications, Allergies Allergies: Coded Allergies: Clarithromycin (Verified Allergy, Intermediate, difficulty breathing, 09/02/17) Sulfa Antibiotics (Verified Allergy, Unknown, 09/07/17) Morphine (Verified Adverse Reaction, Severe, HALLUCINATIONS, 05/30/21) Home Meds Active Scripts Mupirocin (Pseudomonas Fluores (Mupirocin) 2 % Oin, 1 APPLIC TOP TID PRN, #30 GRAMS Prov:SILVERIO LANDON MD 11/23/24 Fluconazole (Diflucan) 150 Mg Tab, 1 TAB PO ONCE, #1 TAB 1 Refill Prov:SILVERIO LANDON MD 11/23/24 Clindamycin HCl (Clindamycin Hydrochloride) 300 Mg Cap, 300 MG PO QID for 10 Days, #40 CAP Prov:SILVERIO LANDON MD 11/23/24 Levofloxacin Hemihydrate (LEVAQUIN 500 MG) 500 Mg Tab, 500 MG PO DAILY for 7 Days, #7 TAB Prov:MICHAEL MATTHEW MD 10/17/23 Levofloxacin Hemihydrate (LEVOFLOXACIN) 500 Mg Tab, 1 TAB PO DAILY for 7 Days, #7 TAB Prov:LUCI BECKHAM MD 07/15/21 Cephalexin (KEFLEX 500) 500 Mg Cap, 1 CAP PO TID for 5 Days, #15 CAP Prov:LUCI BECKHAM MD 05/30/21 Reported Medications Leflunomide (Arava) 20 Mg Tab, 1 TAB PO DAILY, #30 TAB 08/31/17 Alprazolam (Alprazolam) 1 Mg Tab, 1 TAB PO HS, #60 TAB 08/31/17 Atorvastatin Calcium (ATORVASTATIN CALCIUM) 40 Mg Tab, 1 TAB PO DAILY, #30 TAB 5 Refills 08/31/17 Estradiol (Estrace) 0.5 Mg Tab, 0.5 MG PO DAILY, TAB 08/31/17 Furosemide (Furosemide) 20 Mg Tab, 20 MG PO DAILY, TAB 08/31/17 Levothyroxine Sodium (Synthroid) 200 Mcg Tab, 1 TAB PO QAM, #30 TAB 5 Refills 08/31/17 Carvedilol (Carvedilol) 6.25 Mg Tab, 6.25 MG PO QAM for 30 Days, MG 08/31/17 Ibuprofen Micronized (Ibuprofen) 800 Mg Tab, 800 MG PO PRN, TAB 08/31/17 Biotin (SUPER BIOTIN) 5,000 Mcg Cap, 92832 MCG PO DAILY, CAP 08/31/17 Multiple Vitamins W/ Minerals (Centrum Silver) Silver Tab, 1 TAB PO DAILY, TAB 08/31/17 Curcuma Longa (Turmeric) Extra (TURMERIC CURCUMIN) 500 Mg Cap, 1000 MG PO DAILY, CAP 08/31/17 Information Source: Patient, Relative (Child) Mode of Arrival: EMS Severity: Moderate Timing: Hours Duration: Since onset, Hours Prehospital treatment: 12 Lead EKG, Accucheck, Breathing Tx, Fiber Picker, Oxygen Location: Chest (L) Radiation: No Radiation Quality: Sharp, Pressure Onset: At Rest Cardiac Risk Factors: Hyperlipidemia, Diabetes PE Risk Factors: None History of: None Modifying Factors: Exertion Associated Signs and Symptoms: None Past Medical History PAST MEDICAL HISTORY: Arthritis, Asthma, High Lipids, HTN, NH Surgical History: Appendectomy, , Hysterectomy WARE TESTER History: No Pertinent WARE TESTER History Family History Family History: Family hx of Cancer Social History Smoker: Non-Smoker Alcohol: Denies ETOH Use Drugs: Denies Drug Use Lives In: Home EKG EKG : Pulse Rate (adult): 77 [place]: Normal Cardiac Rhythm: NSR Block: None Hypertrophy: None ST: Normal Was a procedure done? Was a procedure done?: No CP Differential Dx Differential Diagnosis: Angina, Anxiety / Panic Attack, Electrolyte Disorder, Pulmonary Embolus Differential Diagnosis: CHF, HTN Encephalopathy Differential Diagnosis: Angina, Chest Wall Pain, Cholelithiasis, Esophageal reflux/spasm, Gastritis, Pneumonia, Pulmonary Embolus X-Ray, Labs, Meds, VS Vital Signs Date Time Temp Pulse Resp B/P (MAP) Pulse Ox O2 Delivery O2 Flow Rate FiO2 11/27/24 07:50 97.8 75 18 143/90 (107) 96 97.8 11/27/24 04:24 16 95 Room Air* 0 21 11/27/24 04:06 77 11/27/24 03:46 77 11/27/24 03:43 98.6 78 22 162/89 97 98.6 Lab Test 11/27/24 05:26 11/27/24 04:28 Range/Units Troponin I High Sensitivity 6 3 L </=34 ng/L White Blood Count 7.2 4.4-10.8 10^3/uL Red Blood Count 4.51 4.0-5.20 10^6/uL Hemoglobin 14.3 12.2-16.2 g/dL Hematocrit 41.5 36.0-46.0 % Mean Corpuscular Volume 92.0 80.0-100.0 fL Mean Corpuscular Hemoglobin 31.7 28.0-32.0 pg Mean Corpuscular Hemoglobin Concent 34.4 32.0-36.0 g/dL Red Cell Distribution Width 12.4 11.8-14.3 % Platelet Count 120 L 140-450 10^3/uL Mean Platelet Volume 7.7 6.9-10.8 fL Neutrophils (%) (Auto) 70.3 37.0-80.0 % Lymphocytes (%) (Auto) 16.5 10.0-50.0 % Monocytes (%) (Auto) 9.3 0.0-12.0 % Eosinophils (%) (Auto) 3.1 0.0-7.0 % Basophils (%) (Auto) 0.8 0.0-2.0 % Neutrophils # (Auto) 5.0 1.6-8.6 10 ^3/uL Lymphocytes # (Auto) 1.2 0.4-5.4 10 ^3/uL Monocytes # (Auto) 0.7 0-1.3 10 ^3/uL Eosinophils # (Auto) 0.2 0-0.8 10 ^3/uL Basophils # (Auto) 0.1 0-0.2 10 ^3/uL Nucleated Red Blood Cells 0.1 % Sodium Level 139 136-145 mmol/L Potassium Level 4.0 3.5-5.1 mmol/L Chloride Level 103 98-107 mmol/L Carbon Dioxide Level 27 20-31 mmol/L Anion Gap 9 5-15 Blood Urea Nitrogen 13 9-23 mg/dL Creatinine 1.06 H 0.550-1.02 mg/dL Glomerular Filtration Rate Calc 59 >90 mL/min BUN/Creatinine Ratio 12.3 10.0-20.0 Serum Glucose 121 H 74-106 mg/dL Calcium Level 10.0 8.7-10.4 mg/dL B-Type Natriuretic Peptide 28.84 0-100 pg/mL Current Medications Medications (Trade) Dose Ordered Sig/Pool Route Start Time Stop Time Status Last Admin Levalbuterol HCl (Xopenex Medneb) 0.625 mg O ONCE NEB 11/27/24 04:19 11/27/24 04:20 DC 11/27/24 04:24 PATIENT: DYLON ANSARI ACCT: [id number] UNIT: [id number] : 1960 LOC: ER ROOM / BED: / AGE / SEX: 64 / F ADM STATUS: REG ER SERVICE [id number] ORDERING PHYSICIAN: JONATHAN ANDUJAR MD PROCEDURE(s): CXR1 - CHEST XRAY 1 VIEW REASON: cp ORDER NUMBER(s): [id number], ACCESSION NUMBER(s): [id number] CHEST RADIOGRAPH Indication: cp Technique: Single frontal view of the chest was obtained COMPARISON: CT CT ANGIO CHEST CONTRAST on DOS: 10/17/23, CXRP on DOS: 07/15/21, CHEST PORTABLE on DOS: 07/15/21, CHEST PORTABLE on DOS: 05/30/21, CHEST TWO VIEWS ROUTINE on DOS: 07/31/20 FINDINGS: Lines and Tubes: None Lungs: Clear Pleura: No effusion. No pneumothorax. Cardiomediastinal contours: Unremarkable Bones: Unremarkable IMPRESSION: No acute disease. Time of 1ST Reevaluation: 04:30 Reevaluation 1ST: Unchanged Patient Education/Counseling: Diagnosis, Treatment, Need For Follow Up Family Education/Counseling: Diagnosis, Treatment, Need For Follow Up SEPSIS Sepsis Screen Date sepsis recognized/suspect: Nov 27, 2024 Time Sepsis recognized/suspect: 348 Recent Procedure: No On Antibiotic Therapy: No Respiratory Rate >20: Yes Heart Rate >90: No Temp<36 C (96.8 F) or >38.3 C: No SBP <90 or MAP <65 mmHG: No New Acute Mental Status Change: No Is the patient on CPAP, BIPAP,: No Physician Orders Chest Xray 1 View (11/27/24 03:56) Vital Signs Date Time Temp Pulse Resp B/P (MAP) Pulse Ox O2 Delivery O2 Flow Rate FiO2 11/27/24 07:50 97.8 75 18 143/90 (107) 96 97.8 11/27/24 04:24 16 95 Room Air* 0 21 11/27/24 04:06 77 11/27/24 03:46 77 11/27/24 03:43 98.6 78 22 162/89 97 98.6 Laboratory Tests Test 11/27/24 04:28 White Blood Count 7.2 10^3/uL (4.4-10.8) Departure 1 Departure Time of Disposition: 04:51 Impression: Primary Impression: Shortness of breath Additional Impression: Hypertension Disposition: 01 HOME / SELF CARE / HOMELESS Condition: Stable Additional Instructions: ED DISCHARGE INSTRUCTIONS Instructions: Please read all instructions provided in this packet carefully. Although you have been discharged from the Emergency Department, this does not mean that you have a "clean bill of health". No definitive diagnosis for your symptoms has been made today. It is possible that you are in the process of developing a serious illness. This is why you must return to the ED without fail if any new or worsening symptoms (especially if your symptoms include chest pain, trouble breathing, abdominal pain, fever, headache, confusion, trouble seeing, or trouble walking) It is also very important that you see a primary care provider (PCP) within the next 1-3 days to follow up. If you are unable to get an appointment, return to the ED for re-evaluation. SHORTNESS OF BREATH EDUCATION Shortness of breath has many causes. Sometimes conditions such as anxiety can lead to shortness of breath. Some people get mild shortness of breath when they exercise. Trouble breathing also can be a symptom of a serious problem, such as asthma, lung disease, emphysema, heart problems, and pneumonia. If your shortness of breath continues, you may need tests and treatment. Watch for any changes in your breathing and other symptoms. Follow-up care is a wolfe part of your treatment and safety. Be sure to make and go to all appointments, and call your doctor if you are having problems. It's also a good idea to know your test results and keep a list of the medicines you take. How can you care for yourself at home? Do not smoke or allow others to smoke around you. If you need help quitting, talk to your doctor about stop-smoking programs and medicines. These can increase your chances of quitting for good. Get plenty of rest and sleep. Take your medicines exactly as prescribed. Call your doctor if you think you are having a problem with your medicine. Find healthy ways to deal with stress. Exercise daily. Get plenty of sleep. Eat regularly and well. When should you call for help? Call 911 anytime you think you may need emergency care. For example, call if: You have severe shortness of breath. You have symptoms of a heart attack. These may include: Chest pain or pressure, or a strange feeling in the chest. Sweating. Shortness of breath. Nausea or vomiting. Pain, pressure, or a strange feeling in the back, neck, jaw, or upper belly or in one or both shoulders or arms. Lightheadedness or sudden weakness. A fast or irregular heartbeat. After you call 911, the turning machine set up operator may tell you to chew 1 adult-strength or 2 to 4 low-dose aspirin. Wait for an ambulance. Do not try to drive yourself. Call your doctor now or seek immediate medical care if: Your shortness of breath gets worse or you start to wheeze. Wheezing is a high- pitched sound when you breathe. You wake up at night out of breath or have to prop your head up on several pillows to breathe. You are short of breath after only light activity or while at rest. Watch closely for changes in your health, and be sure to contact your doctor if: You do not get better over the next 1 to 2 days. Credits for Shortness of Breath: Care Instructions Current as of: November 22, 2023 Author: [employer] Staff Comments 64-year-old female with elevated blood pressure and shortness of breath Blood pressure improved with treatment in the emergency department Patient was seen and evaluated 5 days ago bilateral lower extremity ultrasound which was negative for DVT Patient felt stable for discharge to follow up with primary care provider and advised to return to the emergency department with any new, worsening or concerning symptoms Critical Care Note Critical Care Time?: No Stability Stability form required: No Heart Score Heart Score: Heart Score Response (Comments) Value History N/A 0 EKG N/A 0 Age N/A 0 Risk Factors N/A 0 Troponin N/A 0 Total 0 I personally scribed for JONATHAN ANDUJAR MD ([email or web address]) on 11/27/24 at 04:06. Electronically submitted by Atul Westbrook ([email or web address]). I personally scribed for JONATHAN ANDUJAR MD ([email or web address]) on 11/27/24 at 05:05. Electronically submitted by Atul Westbrook ([email or web address]). JONATHAN ANDUJAR MD Nov 27, 2024 04:06
[2024-11-27] MEDS: LEVALBUTEROL HCL 1.25 MG/3 ML NEB NEB ONE (04:24)
[2024-11-27 04:39] LABS: Hematocrit 41.5 % (36.0-46.0); Hemoglobin 14.3 g/dL (12.2-16.2); Mean Corpuscular Hemoglobin 31.7 pg (28.0-32.0); Mean Corpuscular Volume 92.0 fL (80.0-100.0); Nucleated Red Blood Cells % 0.1 %
[2024-11-27 04:53] LABS: Chloride 103 mmol/L (98-107); Potassium 4.0 mmol/L (3.5-5.1); Sodium 139 mmol/L (136-145)
[2024-11-27 04:54] LABS: Anion Gap 9 (5-15); Carbon Dioxide 27 mmol/L (20-31)
[2024-11-27 04:55] LABS: Calcium 10.0 mg/dL (8.7-10.4)
--- NOTE | 2024-11-27 04:59 | DVH ---
CHEST RADIOGRAPH Indication: cp Technique: Single frontal view of the chest was obtained COMPARISON: CT CT ANGIO CHEST CONTRAST on DOS: 10/17/23, CXRP on DOS: 07/15/21, CHEST PORTABLE on DOS: 07/15/21, CHEST PORTABLE on DOS: 05/30/21, CHEST TWO VIEWS ROUTINE on DOS: 07/31/20 FINDINGS: Lines and Tubes: None Lungs: Clear Pleura: No effusion. No pneumothorax. Cardiomediastinal contours: Unremarkable Bones: Unremarkable IMPRESSION: No acute disease.
[2024-11-27 05:00] LABS: BUN/Creatinine Ratio 12.3 (10.0-20.0); Blood Urea Nitrogen 13 mg/dL (9-23); Glucose 121 mg/dL (74-106)
[2024-11-27 07:50] VITALS: BP 143/90; PULSE 75; RESP 18; TEMP 97.8; O2SAT 96
--- NOTE | 2024-11-27 10:02 | ECG ---
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
== END 2024-11-27 07:52 | disposition home or self-care (01) ==
LOC: EDSEX 03:30 → ER 03:30 → EDBD 03:30 → EDUNIT# 03:30 → ER 07:52
DX: R06.02 Shortness of breath (principal); I95.9 Hypotension, unspecified; J44.89 Other specified chronic obstructive pulmonary disease; I25.2 Old myocardial infarction; I10 Essential (primary) hypertension; E78.5 Hyperlipidemia, unspecified; Z90.49 Acquired absence of other specified parts of digestive tract; Z88.5 Allergy status to narcotic agent; Z79.899 Other long term (current) drug therapy; Z88.2 Allergy status to sulfonamides; Z90.710 Acquired absence of both cervix and uterus
CPT/HCPCS: 36415; 71045; 80048; 83880; 84484; 85025; 93005; 94640